=== PATIENT | male | born 2000 | race Caucasian/White ===

== ENCOUNTER 2023-05-13 05:30 | Emergency (ER) | payer OTHER ==
[~2023-05-13] VITALS: Ht 180.3 cm; Wt 78.5 kg
[2023-05-13] MEDS ORDERED: AMOX TR-K CLV1 EAC1 PO (07:43)
[2023-05-13 08:05] VITALS: BP 128/70
== END 2023-05-13 08:07 | disposition home or self-care (01) ==
LOC: ED 05:30 → EDBD 05:31 → ED 05:31
DX: S61.412A Laceration without foreign body of left hand, initial encounter (principal); W26.0XXA Contact with knife, initial encounter
CPT/HCPCS: 12004; 64417; 99282; A9270